=== PATIENT | male | born 1970 | race Caucasian/White ===

== ENCOUNTER 2018-03-14 20:53 | Inpatient (IN) | payer MEDICAID ==
[2018-03-14 21:20] LABS: ADD MAN DIFF? NO
[2018-03-14 21:22] LABS: ABNORMAL IP MESSAGE 1; BASOPHIL # 0.1 10^3/ul (0.0-0.1); BASOPHILS % 0.4 % (0.0-2.0); EOSINOPHILS # 0.1 10^3/ul (0.0-0.5); EOSINOPHILS % 0.4 % (0.0-7.0); HEMATOCRIT 45.5 % (42.0-52.0); HEMOGLOBIN 15.5 g/dl (14.0-18.0); LYMPHOCYTES # 1.7 10^3/ul (0.8-2.9); MEAN CORPUSCULAR HEMOGLOBIN 29.1 pg (29.0-33.0); MEAN CORPUSCULAR HGB CONC 34.1 g/dl (32.0-37.0); MEAN CORPUSCULAR VOLUME 85.5 fl (82.0-101.0); MEAN PLATELET VOLUME 10.7 fl (7.4-10.4); MONOCYTE # 2.2 10^3/ul (0.3-0.9); MONOCYTES % 9.2 % (0.0-11.0); NEUTROPHILS % 82.4 % (39.0-77.0); PLATELET COUNT 380 10^3/UL (140-415); POSITIVE DIFF @See below; RED BLOOD COUNT 5.32 10^6/ul (4.70-6.10); RED CELL DISTRIBUTION WIDTH 13.7 % (11.5-14.5)
[2018-03-14 21:22] LABS: WHITE BLOOD COUNT 24.2 10^3/ul (4.8-10.8)
[2018-03-14] MEDS: morphine 4 MG/ML VIAL IV (21:28)
[2018-03-14] MEDS: LIDOCAINE/MYLANTA 40 ML BTL PO (21:28)
[2018-03-14 21:43] LABS: ALANINE AMINOTRANSFERASE 27 IU/L (13-69); ALBUMIN 4.3 g/dl (3.3-4.9); ALKALINE PHOSPHATASE 96 IU/L (42-121); ANION GAP 14 (8-16); ASPARTATE AMINO TRANSFERASE 16 IU/L (15-46); BILIRUBIN,INDIRECT 0.9 mg/dl (0-1.1); BILIRUBIN,TOTAL 0.9 mg/dl (0.2-1.3); BLOOD UREA NITROGEN 12 mg/dl (7-20); CALCIUM 9.4 mg/dl (8.4-10.2); CARBON DIOXIDE 18 mmol/L (21-31); CHLORIDE 107 mmol/L (97-110); CREATININE 0.86 mg/dl (0.61-1.24); GLUCOSE 120 mg/dl (70-220); LIPASE 24 U/L (23-300); POTASSIUM 3.8 mmol/L (3.5-5.1); SODIUM 135 mmol/L (135-144); TOTAL PROTEIN 7.1 g/dl (6.1-8.1)
[2018-03-14 22:19] LABS: B-TYPE NATRIURETIC PEPTIDE 62 PG/ML (0-125); TROPONIN-I < 0.010 ng/ml (0.000-0.120)
[2018-03-14] MEDS: CEFTRIAXONE 1 GM/50 ML (PMX) 50 ML IVPB (23:40)
[2018-03-15] MEDS: LACTATED RINGER'S 1,000 ML IV (00:02)
[2018-03-15] MEDS: metroNIDAZOLE 500 MG/NS (PMX) 100 ML IVPB (00:15)
[2018-03-15] MEDS ORDERED: NACL 0.9% 3 ML SYG IV (03:00)
[2018-03-15] MEDS ORDERED: ONDANSETRON 4 MG INJ IV (03:00)
[2018-03-15] MEDS ORDERED: ACETAMINOPHEN 325 MG TAB PO (03:00)
[2018-03-15] MEDS ORDERED: BISACODYL (EC) 5 MG TAB PO (03:00)
[2018-03-15 03:22] LABS: CREATINE KINASE 43 IU/L (23-200)
[2018-03-15 03:26] LABS: C-REACTIVE PROTEIN 3.8 mg/dl (0.0-0.9)
[2018-03-15 03:31] LABS: CK INDEX 2.7
[2018-03-15 03:38] LABS: CK-MB 1.15 ng/ml (0.0-2.4); TROPONIN-I < 0.010 ng/ml (0.000-0.120)
[2018-03-15] MEDS: HYDROmorphONE 0.5 MG/0.5 ML SYG IV ×2 (03:48→09:18)
[2018-03-15] MEDS: SOD CHLORIDE 0.9% 1,000 ML IV ×3 (03:48→15:22)
[2018-03-15 04:08] LABS: ERYTHROCYTE SEDIMENTATION RATE 13 mm/Hr (0-15)
[2018-03-15 05:29] LABS: ADD MAN DIFF? NO
[2018-03-15 05:36] LABS: ABNORMAL IP MESSAGE 1; BASOPHILS % 0.3 % (0.0-2.0); EOSINOPHILS # 0.1 10^3/ul (0.0-0.5); EOSINOPHILS % 0.7 % (0.0-7.0); HEMOGLOBIN 14.4 g/dl (14.0-18.0); LYMPHOCYTES # 1.7 10^3/ul (0.8-2.9); LYMPHOCYTES % 11.3 % (15.0-51.0); MEAN CORPUSCULAR HEMOGLOBIN 29.6 pg (29.0-33.0); MEAN CORPUSCULAR HGB CONC 34.3 g/dl (32.0-37.0); MEAN CORPUSCULAR VOLUME 86.4 fl (82.0-101.0); MEAN PLATELET VOLUME 11.7 fl (7.4-10.4); MONOCYTE # 1.9 10^3/ul (0.3-0.9); MONOCYTES % 12.7 % (0.0-11.0); NEUTROPHIL # 11.3 10^3/ul (1.6-7.5); NEUTROPHILS % 74.6 % (39.0-77.0); PLATELET COUNT 321 10^3/UL (140-415); POSITIVE DIFF @See below; RED BLOOD COUNT 4.86 10^6/ul (4.70-6.10); RED CELL DISTRIBUTION WIDTH 13.7 % (11.5-14.5)
[2018-03-15 05:36] LABS: WHITE BLOOD COUNT 15.2 10^3/ul (4.8-10.8)
[2018-03-15 06:52] LABS: ALBUMIN/GLOBULIN RATIO 1.32; ANION GAP 11 (8-16); BILIRUBIN,TOTAL 0.8 mg/dl (0.2-1.3); CHOL/HDL RATIO 6.5 RATIO; LDL CHOLESTEROL,CALCULATED 120 mg/dl
[2018-03-15 07:01] LABS: ALANINE AMINOTRANSFERASE 18 IU/L (13-69); ALBUMIN 3.7 g/dl (3.3-4.9); ALKALINE PHOSPHATASE 73 IU/L (42-121); ASPARTATE AMINO TRANSFERASE 19 IU/L (15-46); BILIRUBIN,INDIRECT 0.8 mg/dl (0-1.1); BLOOD UREA NITROGEN 12 mg/dl (7-20); CALCIUM 8.7 mg/dl (8.4-10.2); CARBON DIOXIDE 21 mmol/L (21-31); CHLORIDE 109 mmol/L (97-110); CHOLESTEROL 176 mg/dl (100-200); GLUCOSE 109 mg/dl (70-220); HDL CHOLESTEROL 27 mg/dl (27-67); MAGNESIUM 1.9 mg/dl (1.7-2.5); SODIUM 137 mmol/L (135-144); TOTAL PROTEIN 6.5 g/dl (6.1-8.1); TRIGLYCERIDES 146 mg/dl (0-149)
[2018-03-15 07:10] LABS: HEMOGLOBIN A1C 5.6 % (0-5.9)
[2018-03-15 09:27] LABS: CREATINE KINASE 33 IU/L (23-200)
[2018-03-15 09:40] LABS: CK INDEX 2.7; TROPONIN-I < 0.010 ng/ml (0.000-0.120)
[2018-03-15] MEDS: BISACODYL (EC) 5 MG TAB PO (17:53)
[2018-03-15] MEDS: MAGNESIUM CITRATE 300 ML BTL PO (17:53)
[2018-03-15] MEDS: POLYETHYLENE GLYCOL 3350 119 GM POWDER PO (17:53)
[2018-03-16 05:34] LABS: ADD MAN DIFF? NO
[2018-03-16] MEDS: POLYETHYLENE GLYCOL 3350 119 GM POWDER PO (05:36)
[2018-03-16] MEDS: SOD CHLORIDE 0.9% 1,000 ML IV (05:36)
[2018-03-16 05:37] LABS: WHITE BLOOD COUNT 9.2 10^3/ul (4.8-10.8)
[2018-03-16 05:37] LABS: BASOPHILS % 0.4 % (0.0-2.0); EOSINOPHILS # 0.2 10^3/ul (0.0-0.5); EOSINOPHILS % 1.6 % (0.0-7.0); HEMATOCRIT 40.5 % (42.0-52.0); HEMOGLOBIN 13.7 g/dl (14.0-18.0); LYMPHOCYTES # 1.4 10^3/ul (0.8-2.9); LYMPHOCYTES % 14.8 % (15.0-51.0); MEAN CORPUSCULAR HEMOGLOBIN 29.3 pg (29.0-33.0); MEAN CORPUSCULAR HGB CONC 33.8 g/dl (32.0-37.0); MEAN CORPUSCULAR VOLUME 86.7 fl (82.0-101.0); MONOCYTE # 1.4 10^3/ul (0.3-0.9); MONOCYTES % 15.6 % (0.0-11.0); NEUTROPHIL # 6.2 10^3/ul (1.6-7.5); NEUTROPHILS % 67.3 % (39.0-77.0); PLATELET COUNT 313 10^3/UL (140-415); RED BLOOD COUNT 4.67 10^6/ul (4.70-6.10); RED CELL DISTRIBUTION WIDTH 13.5 % (11.5-14.5)
[2018-03-16 06:00] LABS: ANION GAP 11 (8-16); BLOOD UREA NITROGEN 9 mg/dl (7-20); CALCIUM 8.8 mg/dl (8.4-10.2); CARBON DIOXIDE 22 mmol/L (21-31); CHLORIDE 109 mmol/L (97-110); CREATININE 0.89 mg/dl (0.61-1.24); GLUCOSE 97 mg/dl (70-220); MAGNESIUM 2.3 mg/dl (1.7-2.5); POTASSIUM 3.6 mmol/L (3.5-5.1); SODIUM 138 mmol/L (135-144)
[2018-03-16] MEDS: BISACODYL (EC) 5 MG TAB PO (07:54)
[2018-03-16] MEDS: MIDAZOLAM 1 MG/ML 2 ML INJ (15:21)
[2018-03-16] MEDS: LIDOCAINE 2% (SDV) 5 ML INJ (15:21)
[2018-03-16] MEDS: FENTAnyl 50 MCG/ML VIAL (15:21)
[2018-03-16] MEDS: PROPOFOL 20 ML (15:21)
[2018-03-17] MEDS: PANTOPRAZOLE (EC) 40 MG TAB PO (18:09)
[2018-03-17] MEDS: BUDESONIDE (EC) 3 MG CAP PO (18:09)
[2018-03-18 05:24] LABS: ADD MAN DIFF? NO
[2018-03-18 05:27] LABS: BASOPHILS % 0.4 % (0.0-2.0); EOSINOPHILS % 0.4 % (0.0-7.0); HEMATOCRIT 41.4 % (42.0-52.0); IMMATURE GRANS #M 0.05 10^3/ul; IMMATURE GRANS % (M) 0.5 %; LYMPHOCYTES % 10.5 % (15.0-51.0); MEAN CORPUSCULAR HEMOGLOBIN 28.5 pg (29.0-33.0); MEAN CORPUSCULAR HGB CONC 33.8 g/dl (32.0-37.0); MEAN CORPUSCULAR VOLUME 84.3 fl (82.0-101.0); MONOCYTE # 0.5 10^3/ul (0.3-0.9); MONOCYTES % 5.1 % (0.0-11.0); NEUTROPHIL # 7.8 10^3/ul (1.6-7.5); NEUTROPHILS % 83.1 % (39.0-77.0); PLATELET COUNT 377 10^3/UL (140-415); RED BLOOD COUNT 4.91 10^6/ul (4.70-6.10); RED CELL DISTRIBUTION WIDTH 13.2 % (11.5-14.5)
[2018-03-18 05:27] LABS: WHITE BLOOD COUNT 9.3 10^3/ul (4.8-10.8)
[2018-03-18] MEDS: PANTOPRAZOLE (EC) 40 MG TAB PO ×2 (05:33→18:24)
[2018-03-18 05:58] LABS: ANION GAP 14 (8-16); BLOOD UREA NITROGEN 11 mg/dl (7-20); CARBON DIOXIDE 23 mmol/L (21-31); CHLORIDE 109 mmol/L (97-110); CREATININE 0.84 mg/dl (0.61-1.24); GLUCOSE 114 mg/dl (70-220); POTASSIUM 3.7 mmol/L (3.5-5.1); SODIUM 142 mmol/L (135-144)
[2018-03-18] MEDS: BUDESONIDE (EC) 3 MG CAP PO (09:33)
[2018-03-19] MEDS: PANTOPRAZOLE (EC) 40 MG TAB PO (05:56)
[2018-03-19] MEDS: DOCUSATE SODIUM 100 MG CAP PO (09:26)
[2018-03-19] MEDS: BUDESONIDE (EC) 3 MG CAP PO (09:26)
[2018-03-19 14:06] LABS: ANA SCREEN NEGATIVE (NEGATIVE); ANCA SCREEN NEGATIVE (NEGATIVE); MYELOPEROXIDASE ANTIBODY <1.0 AI; PROTEINASE-3 ANTIBODY <1.0 AI
== END 2018-03-19 14:50 | disposition home or self-care (01) | DRG 386 ==
LOC: E/R 20:53 → MS1 03-15 00:02
PROC: 0DB98ZX Excision of Duodenum, Via Natural or Artificial Opening Endoscopic, Diagnostic (ICD-10-PCS; principal; 2018-03-16 14:45)
PROC: 0DB68ZX Excision of Stomach, Via Natural or Artificial Opening Endoscopic, Diagnostic (ICD-10-PCS; 2018-03-16 14:45)
PROC: 0DBB8ZX Excision of Ileum, Via Natural or Artificial Opening Endoscopic, Diagnostic (ICD-10-PCS; 2018-03-16 14:45)
PROC: 0DBF8ZX Excision of Right Large Intestine, Via Natural or Artificial Opening Endoscopic, Diagnostic (ICD-10-PCS; 2018-03-16 14:45)
DX: K50.012 Crohn's disease of small intestine with intestinal obstruction (principal); K63.3 Ulcer of intestine; K63.5 Polyp of colon; K29.70 Gastritis, unspecified, without bleeding; K44.9 Diaphragmatic hernia without obstruction or gangrene; R19.7 Diarrhea, unspecified; K80.80 Other cholelithiasis without obstruction; D72.829 Elevated white blood cell count, unspecified; Z72.0 Tobacco use; K76.0 Fatty (change of) liver, not elsewhere classified
CPT/HCPCS: 36415; 71045; 74176; 76705; 80048; 80053; 80061; 80076; 82550; 82553; 83036; 83690; 83735; 83880; 84443; 84484; 85025; 85651; 86021; 86038; 86140; 86674; 87045; 87075; 87177; 87205; 88305; 88312; 88313; 93005; 96365; 96375; 99285-25